=== PATIENT | male | born 1985 | race Caucasian/White ===

== ENCOUNTER 2017-06-27 10:00 | Emergency (ER) | payer OTHER ==
[~2017-06-27] VITALS: Ht 172.7 cm; Wt 70.0 kg
[~2017-06-27 10:00] MED LIST: DILA2TAB4 PO; IBUP-238 PO; PROM25SU8 PO; TAMS0.4C67 PO
[2017-06-27 10:15] VITALS: BP 141/86; PULSE 82; RESP 17; TEMP 97.7; O2SAT 98
[2017-06-27 10:54] VITALS: BP 129/79; PULSE 80; RESP 18; O2SAT 97
[2017-06-27 10:55] LABS: BILIRUBIN, URINE NEG (NEG); BLOOD, URINE NEG (NEG); CALCIUM OXALATE CRYSTALS,URINE RARE /hpf; GLUCOSE,URINE NEG (NEG); HYALINE CAST, URINE 3 /lpf (RARE); KETONE, URINE NEG (NEG); MUCUS URINE FEW /lpf (OCC); NITRITE,URINE NEG (NEG); URINE COLOR YELLOW (YELLW/STRAW); URINE LEUKOCYTE ESTERASE NEG (NEG)
[2017-06-27 11:37] LABS: AUTOMATED NEUTROPHIL # 7.8 TH/MM3 (1.8-7.7); BASOPHIL % 0.3 % (0.0-2.0); EOSINOPHIL # 0.6 TH/MM3 (0-0.4); EOSINOPHIL % 4.9 % (0.0-4.0); HEMATOCRIT 42.5 % (39.0-51.0); HEMOGLOBIN 15.4 GM/DL (13.0-17.0); LYMPH % 23.2 % (9.0-44.0); LYMPHOCYTE # 2.9 TH/MM3 (1.0-4.8); MEAN CELL VOLUME 88.1 FL (80.0-100.0); MEAN CORPUSCULAR HEMOGLOBIN 32.1 PG (27.0-34.0); MEAN PLATELET VOLUME 6.6 FL (7.0-11.0); MONO % 9.8 % (0.0-8.0); MONOCYTE # 1.2 TH/MM3 (0-0.9); NEUT % 61.8 % (16.0-70.0); PLATELET COUNT 348 TH/MM3 (150-450); RED BLOOD COUNT 4.82 MIL/MM3 (4.50-5.90); WHITE BLOOD COUNT 12.6 TH/MM3 (4.0-11.0)
[2017-06-27 11:42] LABS: MEAN CORPUSCULAR HGB CONC 36.4 % (32.0-36.0)
[2017-06-27 11:43] LABS: ALBUMIN 3.8 GM/DL (3.4-5.0); ALT (GPT) 23 U/L (12-78); AST (GOT) 19 U/L (15-37); BICARBONATE 30.8 MEQ/L (21.0-32.0); BLOOD UREA NITROGEN 8 MG/DL (7-18); CALCIUM 8.6 MG/DL (8.5-10.1); CHLORIDE 101 MEQ/L (98-107); CREATININE 0.81 MG/DL (0.60-1.30); GLOMERULAR FILTRATION RATE 110 ML/MIN (>89); GLUCOSE,RANDOM 95 MG/DL (74-106); SODIUM (NA) 138 MEQ/L (136-145)
[2017-06-27 11:45] LABS: ALKALINE PHOSPHATASE 55 U/L (45-117); TOTAL BILIRUBIN ADULT 0.3 MG/DL (0.2-1.0); TOTAL PROTEIN 7.1 GM/DL (6.4-8.2)
[2017-06-27 17:44] VITALS: BP 107/63; PULSE 66; RESP 16; O2SAT 97
--- NOTE | 2017-06-27 20:02 | PD ---
HPI Chief Complaint: Psychiatric Symptoms Time Seen by Provider: 19:03 Travel History International Travel<30 days: No Contact w/Intl Traveler<30days: No Traveled to known affect area: No History of Present Illness HPI 32-year-old male presents to emergency department under a Isaac act for psychiatric evaluation. Patient has been going through a divorce and called his dad today and told him that he "cannot do this anymore." His father became concerned and contacted police. Patient told law enforcement that he needed help. He was brought here for further evaluation. Patient denies suicidal homicidal ideations. States that he is depressed and has been slipping into a deeper depression with everything going on his life. He denies illicit drug use. Reports history of alcohol abuse but not currently. He does smoke tobacco cigarettes. He denies any acute medical needs at this time. PFSH Past Medical History Diminished Hearing: No Kidney Stones: Yes ?: Not Social History Alcohol Use: Yes (SOCIAL) Tobacco Use: Yes (1 PPD) Substance Use: Yes Allergies-Medications (Allergen,Severity, Reaction): Coded Allergies: No Known Allergies (Verified , 02/05/12) Reported Meds & Prescriptions Reported Meds & Active Scripts Active Phenergan (Promethazine HCl) 25 Mg Tab 25 Mg PO Q6HPRN FOR NAUSEA/VOMITING Flomax (Tamsulosin HCl) 0.4 Mg Cap 0.4 Mg PO DAILY Motrin (Ibuprofen) 800 Mg Tab 800 Mg PO TIDPRN FOR PAIN Dilaudid (Hydromorphone HCl) 2 Mg Tab 2 Mg PO Q4H Review of Systems Except as stated in HPI: all other systems reviewed are Neg Physical Exam Narrative GENERAL: Well-nourished male patient, with depressed affect, laying in bed, in no acute distress. SKIN: Focused skin assessment warm/dry. Multiple scabbed lesions on the upper extremities. HEAD: Atraumatic. Normocephalic. EYES: Pupils equal and round. No scleral icterus. No lateral scleral injection. ENT: No nasal bleeding or discharge. Mucous membranes pink and moist. NECK: Trachea midline. No JVD. CARDIOVASCULAR: Regular rate and rhythm. No murmur appreciated. RESPIRATORY: No accessory muscle use. Clear to auscultation. Breath sounds equal bilaterally. GASTROINTESTINAL: Abdomen soft, non-tender, nondistended. Hepatic and splenic margins not palpable. MUSCULOSKELETAL: No obvious deformities. No clubbing. No cyanosis. No edema. NEUROLOGICAL: Awake and alert. No obvious cranial nerve deficits. Motor grossly within normal limits. Normal speech. PSYCHIATRIC: Depressed mood and affect. Data Data Last Documented VS Vital Signs Date Time Temp Pulse Resp B/P (MAP) Pulse Ox O2 Delivery O2 Flow Rate FiO2 06/27/17 17:44 66 16 107/63 (78) 97 Room Air 06/27/17 10:15 97.7 Orders Orders Complete Blood Count With Diff (06/27/17 10:05) Comprehensive Metabolic Panel (06/27/17 10:05) Urinalysis - C+S If Indicated (06/27/17 10:05) Psych Screen (06/27/17 10:05) Drug Screen, Random Urine (06/27/17 10:05) Alcohol (Ethanol) (06/27/17 10:05) Labs Laboratory Tests Test 06/27/17 10:26 06/27/17 11:20 Urine Color YELLOW Urine Turbidity CLEAR Urine pH 6.0 Urine Specific [place] 1.014 Urine Protein NEG mg/dL Urine Glucose (UA) NEG mg/dL Urine Ketones NEG mg/dL Urine Occult Blood NEG Urine Nitrite NEG Urine Bilirubin NEG Urine Urobilinogen LESS THAN 2.0 MG/DL Urine Leukocyte Esterase NEG Urine RBC LESS THAN 1 /hpf Urine WBC 1 /hpf Urine Calcium Oxalate Crystals RARE /hpf Urine Hyaline Casts 3 /lpf Urine Mucus FEW /lpf Microscopic Urinalysis Comment CULT NOT INDICATED Urine Opiates Screen POS Urine Barbiturates Screen NEG Urine Amphetamines Screen POS Urine Benzodiazepines Screen NEG Urine Cocaine Screen NEG Urine Cannabinoids Screen NEG White Blood Count 12.6 TH/MM3 Red Blood Count 4.82 MIL/MM3 Hemoglobin 15.4 GM/DL Hematocrit 42.5 % Mean Corpuscular Volume 88.1 FL Mean Corpuscular Hemoglobin 32.1 PG Mean Corpuscular Hemoglobin Concent 36.4 % Red Cell Distribution Width 13.0 % Platelet Count 348 TH/MM3 Mean Platelet Volume 6.6 FL Neutrophils (%) (Auto) 61.8 % Lymphocytes (%) (Auto) 23.2 % Monocytes (%) (Auto) 9.8 % Eosinophils (%) (Auto) 4.9 % Basophils (%) (Auto) 0.3 % Neutrophils # (Auto) 7.8 TH/MM3 Lymphocytes # (Auto) 2.9 TH/MM3 Monocytes # (Auto) 1.2 TH/MM3 Eosinophils # (Auto) 0.6 TH/MM3 Basophils # (Auto) 0.0 TH/MM3 CBC Comment AUTO DIFF Differential Comment AUTO DIFF CONFIRMED Blood Urea Nitrogen 8 MG/DL Creatinine 0.81 MG/DL Random Glucose 95 MG/DL Total Protein 7.1 GM/DL Albumin 3.8 GM/DL Calcium Level 8.6 MG/DL Alkaline Phosphatase 55 U/L Aspartate Amino Transf (AST/SGOT) 19 U/L Alanine Aminotransferase (ALT/SGPT) 23 U/L Total Bilirubin 0.3 MG/DL Sodium Level 138 MEQ/L Potassium Level 3.5 MEQ/L Chloride Level 101 MEQ/L Carbon Dioxide Level 30.8 MEQ/L Anion Gap 6 MEQ/L Estimat Glomerular Filtration Rate 110 ML/MIN Ethyl Alcohol Level LESS THAN 3 MG/DL MDM Medical Decision Making Medical Screen Exam Complete: Yes Emergency Medical Condition: Yes Medical Record Reviewed: Yes Differential Diagnosis Mood disorder versus personality disorder versus adjustment reaction disorder Narrative Course 32-year-old male presents to emergency department for evaluation under Isaac act. Patient appears without distress. His vital signs are stable. His lab work is reviewed without acute concern. Toxicology is positive for opiates and amphetamines. Patient is medically cleared to undergo psychiatric screening for further evaluation and disposition. Mental health screening discussed with the patient. Psychiatric screen ordered. Diagnosis Primary Impression: Adjustment disorder Qualified Codes: F43.21 - Adjustment disorder with depressed mood Condition: Stable Lalitha Kim Jun 27, 2017 20:02
--- NOTE | 2017-06-27 23:41 | PD ---
Physical Exam Time Seen by Provider: 23:40 Narrative Please refer to previous providers documentation for details surrounding patient 's current visit. Data Data Last Documented VS Vital Signs Date Time Temp Pulse Resp B/P (MAP) Pulse Ox O2 Delivery O2 Flow Rate FiO2 06/27/17 17:44 66 16 107/63 (78) 97 Room Air 06/27/17 10:15 97.7 Orders Orders Complete Blood Count With Diff (06/27/17 10:05) Comprehensive Metabolic Panel (06/27/17 10:05) Urinalysis - C+S If Indicated (06/27/17 10:05) Psych Screen (06/27/17 10:05) Drug Screen, Random Urine (06/27/17 10:05) Alcohol (Ethanol) (06/27/17 10:05) Ed Discharge Order (06/27/17 23:39) Labs Laboratory Tests Test 06/27/17 10:26 06/27/17 11:20 Urine Color YELLOW Urine Turbidity CLEAR Urine pH 6.0 Urine Specific [place] 1.014 Urine Protein NEG mg/dL Urine Glucose (UA) NEG mg/dL Urine Ketones NEG mg/dL Urine Occult Blood NEG Urine Nitrite NEG Urine Bilirubin NEG Urine Urobilinogen LESS THAN 2.0 MG/DL Urine Leukocyte Esterase NEG Urine RBC LESS THAN 1 /hpf Urine WBC 1 /hpf Urine Calcium Oxalate Crystals RARE /hpf Urine Hyaline Casts 3 /lpf Urine Mucus FEW /lpf Microscopic Urinalysis Comment CULT NOT INDICATED Urine Opiates Screen POS Urine Barbiturates Screen NEG Urine Amphetamines Screen POS Urine Benzodiazepines Screen NEG Urine Cocaine Screen NEG Urine Cannabinoids Screen NEG White Blood Count 12.6 TH/MM3 Red Blood Count 4.82 MIL/MM3 Hemoglobin 15.4 GM/DL Hematocrit 42.5 % Mean Corpuscular Volume 88.1 FL Mean Corpuscular Hemoglobin 32.1 PG Mean Corpuscular Hemoglobin Concent 36.4 % Red Cell Distribution Width 13.0 % Platelet Count 348 TH/MM3 Mean Platelet Volume 6.6 FL Neutrophils (%) (Auto) 61.8 % Lymphocytes (%) (Auto) 23.2 % Monocytes (%) (Auto) 9.8 % Eosinophils (%) (Auto) 4.9 % Basophils (%) (Auto) 0.3 % Neutrophils # (Auto) 7.8 TH/MM3 Lymphocytes # (Auto) 2.9 TH/MM3 Monocytes # (Auto) 1.2 TH/MM3 Eosinophils # (Auto) 0.6 TH/MM3 Basophils # (Auto) 0.0 TH/MM3 CBC Comment AUTO DIFF Differential Comment AUTO DIFF CONFIRMED Blood Urea Nitrogen 8 MG/DL Creatinine 0.81 MG/DL Random Glucose 95 MG/DL Total Protein 7.1 GM/DL Albumin 3.8 GM/DL Calcium Level 8.6 MG/DL Alkaline Phosphatase 55 U/L Aspartate Amino Transf (AST/SGOT) 19 U/L Alanine Aminotransferase (ALT/SGPT) 23 U/L Total Bilirubin 0.3 MG/DL Sodium Level 138 MEQ/L Potassium Level 3.5 MEQ/L Chloride Level 101 MEQ/L Carbon Dioxide Level 30.8 MEQ/L Anion Gap 6 MEQ/L Estimat Glomerular Filtration Rate 110 ML/MIN Ethyl Alcohol Level LESS THAN 3 MG/DL MDM Medical Record Reviewed: Yes Supervised Visit with TIFFANY: No Narrative Course 32-year-old male brought to the emergency department for psychiatric evaluation. He was medically cleared, then evaluated by psychiatry. Patient has no further medical needs and will be transferred to psychiatric facility. Diagnosis Primary Impression: Adjustment disorder Qualified Codes: F43.21 - Adjustment disorder with depressed mood Condition: Stable Lalitha Kim Jun 27, 2017 23:41
== END 2017-06-28 00:59 ==
LOC: NEPJ 10:00
DX: F43.21 Adjustment disorder with depressed mood (principal); F17.210 Nicotine dependence, cigarettes, uncomplicated; Z79.899 Other long term (current) drug therapy
CPT/HCPCS: 80053; 80307; 81001; 85025; 99284